=== PATIENT | female | born 2000 | race Two or more races ===

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

== ENCOUNTER 2021-06-04 08:06 | Emergency (ER) | payer MEDICAID ==
[~2021-06-04] VITALS: Ht 162.6 cm; Wt 61.0 kg
[2021-06-04] MEDS ORDERED: KETOROLAC 30MG/ML VIAL IV STA (08:53)
[2021-06-04] MEDS ORDERED: LEVETIRACETAM 500MG PREMIX 100 ML IV ONE (09:00)
[2021-06-04 09:59] LABS: BASOPHILS % 0.3 % (0.0-2.0); EOSINOPHILS % 0.3 % (0.0-5.0); HEMATOCRIT. 38.2 % (36.0-48.0); HEMOGLOBIN. 13.1 g/dL (12.0-16.0); LYMPHOCYTES % 19.2 % (20.0-50.0); MEAN CORPUSCULAR HEMOGLOBIN 32.9 pg (28.0-32.0); MEAN PLATELET VOLUME 7.5 fl (7.4-10.4); NEUTROPHILS % 75.2 % (40.0-76.0); PLATELET 397 x1000/uL (130-400); RED BLOOD CELL COUNT 3.98 mill/uL (4.2-5.4); RED CELL DISTRIBUTION WIDTH 12.3 % (11.6-14.6)
[2021-06-04 10:05] LABS: CHLORIDE 108 mEq/L (98-107)
[2021-06-04 10:12] LABS: HCG SCREEN NEGATIVE
[2021-06-04] MEDS ORDERED: BO1 TP (12:07)
[2021-06-04] MEDS ORDERED: HYDROCODONE/ACETAMINOPHEN 10/325MG TABLET PO STA (12:35)
[2021-06-04 12:48] VITALS: BP 106/69
== END 2021-06-04 13:05 | disposition home or self-care (01) ==
LOC: ER 08:06
DX: R56.9 Unspecified convulsions (principal)
CPT/HCPCS: 36415; 80053; 84703; 85025; 96365; 96375; 99284; J1885; J1953

== ENCOUNTER 2022-08-19 15:54 | Observation (INO) | payer MEDICAID ==
[~2022-08-19] VITALS: Ht 165.1 cm; Wt 84.4 kg
[~2022-08-19 15:54] MED LIST changes: +BO1 TP
[2022-08-19] MEDS ORDERED: PERA4TAB PO (16:58)
[2022-08-19] MEDS ORDERED: CLOB20TA15 PO (16:58)
== END 2022-08-19 18:15 | disposition home or self-care (01) ==
LOC: 8 EST LDRP 15:54
PROVIDERS: ADMIT Obstetrics & Gynecology; ATTEND Obstetrics & Gynecology
DX: O26.893 Other specified pregnancy related conditions, third trimester (principal); N89.8 Other specified noninflammatory disorders of vagina; Z3A.39 39 weeks gestation of pregnancy
CPT/HCPCS: 59025; G0378; 99281

== ENCOUNTER 2023-02-18 12:55 | Emergency (ER) | payer MEDICAID ==
[~2023-02-18] VITALS: Ht 162.6 cm; Wt 88.0 kg
[~2023-02-18 12:55] MED LIST changes: +CLOB20TA15 PO; +PERA4TAB PO
[2023-02-18 13:02] VITALS: BP 141/89; PULSE 86; RESP 19; TEMP 98.3; O2SAT 100
[2023-02-18] MEDS ORDERED: LORAZEPAM 1MG TABLET PO ONE (13:30)
[2023-02-18 13:56] LABS: BASOPHILS % 0.7 % (0.0-2.0); HEMATOCRIT. 39.6 % (36.0-48.0); HEMOGLOBIN. 13.7 g/dL (12.0-16.0); LYMPHOCYTES % 43.2 % (20.0-50.0); MEAN CORPUSCULAR HEMOGLOBIN 32.8 pg (28.0-32.0); MEAN CORPUSCULAR HGB CONC 34.6 g/dL (31.0-37.0); MEAN CORPUSCULAR VOLUME 94.7 fL (81.0-99.0); MEAN PLATELET VOLUME 7.9 fl (7.4-10.4); MONOCYTES % 4.9 % (2.0-8.0); NEUTROPHILS % 49.2 % (40.0-76.0); PLATELET 394 x1000/uL (130-400); RED BLOOD CELL COUNT 4.19 mill/uL (4.2-5.4); RED CELL DISTRIBUTION WIDTH 13.1 % (11.6-14.6); WHITE BLOOD COUNT 5.7 x1000/uL (4.5-11.0)
[2023-02-18 14:03] LABS: CHLORIDE 108 mEq/L (98-107); INDEX HEMOLYSI 1 (1-3); INDEX ICTERIC 1 (1-4); INDEX LIPEMIC 1 (1-3); POTASSIUM 3.4 mEq/L (3.5-5.1); SODIUM 138 mEq/L (136-145)
[2023-02-18 14:12] LABS: ALANINE AMINOTRANSFERASE 28 IU/L (13-61); ALBUMIN 4.2 g/dL (3.4-5.0); ASPARTATE AMINOTRANSFERASE 14 IU/L (15-37); BILIRUBIN TOTAL 0.4 mg/dL (0.1-1.0); CALCIUM 8.9 mg/dL (8.5-10.1); CARBON DIOXIDE 22 mEq/L (21-32); CREATININE 0.6 mg/dL (0.6-1.3); ETHANOL BLOOD < 10 mg/dL (<10); GLUCOSE 103 mg/dL (70-105); PROTEIN TOTAL 7.4 g/dL (6.0-8.3); UREA NITROGEN BLOOD 8 mg/dL (7-21)
== END 2023-02-18 16:33 | disposition home or self-care (01) ==
LOC: ER 13:22
DX: F41.9 Anxiety disorder, unspecified (principal); Z86.59 Personal history of other mental and behavioral disorders
CPT/HCPCS: 36415; 80053; 80320; 83605; 85025; 99283; G0480

== ENCOUNTER 2023-07-31 10:08 | Emergency (ER) | payer MEDICAID ==
[~2023-07-31] VITALS: Ht 165.1 cm; Wt 73.0 kg
[2023-07-31 10:14] VITALS: O2SAT 99
[2023-07-31 10:57] LABS: BASOPHILS % 0.4 % (0.0-2.0); EOSINOPHILS % 1.6 % (0.0-5.0); HEMATOCRIT. 39.5 % (36.0-48.0); HEMOGLOBIN. 13.5 g/dL (12.0-16.0); LYMPHOCYTES % 36.5 % (20.0-50.0); MEAN CORPUSCULAR HEMOGLOBIN 33.1 pg (28.0-32.0); MEAN CORPUSCULAR HGB CONC 34.2 g/dL (31.0-37.0); MEAN CORPUSCULAR VOLUME 96.9 fL (81.0-99.0); MEAN PLATELET VOLUME 8.1 fl (7.4-10.4); MONOCYTES % 5.9 % (2.0-8.0); NEUTROPHILS % 55.6 % (40.0-76.0); PLATELET 380 x1000/uL (130-400); RED BLOOD CELL COUNT 4.07 mill/uL (4.2-5.4); RED CELL DISTRIBUTION WIDTH 12.6 % (11.6-14.6)
[2023-07-31 11:01] LABS: HCG SCREEN NEGATIVE
[2023-07-31 11:02] LABS: INR 0.9; PROTHROMBIN TIME 10.5 sec (9.6-11.0)
[2023-07-31 11:06] LABS: ALANINE AMINOTRANSFERASE 22 IU/L (10-49); ALBUMIN 4.6 g/dL (3.2-4.8); ASPARTATE AMINOTRANSFERASE 17 IU/L (<34); BILIRUBIN TOTAL 0.3 mg/dL (0.1-1.0); CALCIUM 8.7 mg/dL (8.7-10.4); CARBON DIOXIDE 26 mEq/L (21-32); CHLORIDE 107 mEq/L (98-107); CREATININE 0.8 mg/dL (0.6-1.0); GLUCOSE 102 mg/dL (70-105); POTASSIUM 4.3 mEq/L (3.5-5.1); PROTEIN TOTAL 6.6 g/dL (6.0-8.3); SODIUM 138 mEq/L (136-145); UREA NITROGEN BLOOD 9 mg/dL (9-23)
[2023-07-31] MEDS: SODIUM CHLORIDE 0.9% 1,000 ML IV ONE (11:10)
[2023-07-31] MEDS: ONDANSETRON HCL 4MG/2ML INJ IV STA (11:10)
[2023-07-31] MEDS ORDERED: ONDA4TAB11 PO (11:53)
[2023-07-31 11:59] LABS: CLARITY URINE CLEAR (CLEAR); COLOR URINE YELLOW (YELLOW); GLUCOSE URINE NEGATIVE (NEGATIVE); KETONES URINE NEGATIVE (NEGATIVE); LEUKOCYTE ESTERASE URINE NEGATIVE (NEGATIVE); NITRITE URINE NEGATIVE (NEGATIVE); OCCULT BLOOD URINE NEGATIVE (NEGATIVE); PROTEIN URINE NEGATIVE (NEGATIVE); SPECIFIC GRAVITY URINE 1.007 (1.005-1.030); UROBILINOGEN URINE 0.2 E.U./dL (0.2-1.0)
[2023-07-31 12:05] VITALS: BP 106/60; PULSE 81; RESP 16; TEMP 97.8
== END 2023-07-31 12:36 | disposition home or self-care (01) ==
LOC: ER 10:08
DX: R11.2 Nausea with vomiting, unspecified (principal); Z86.59 Personal history of other mental and behavioral disorders
CPT/HCPCS: 80053; 81003; 81025; 84703; 83690; 85025; 85610; 36415; 96361; 96374; 99283; J2405; J7030; Z7610